=== PATIENT | male | born 1955 | race Caucasian/White ===

== ENCOUNTER 2022-08-20 08:59 | Outpatient (RCR) | payer MEDICARE, SELFPAY | END 2022-08-20 23:59 | disposition home or self-care (01) | LOC: CR 08:59 | PROVIDERS: PCP Family Medicine; Visit Provider Internal Medicine Cardiovascular Disease | DX: Z95.1 Presence of aortocoronary bypass graft (principal) | CPT/HCPCS: S9472 ==

== ENCOUNTER 2022-09-17 09:06 | Outpatient (RCR) | payer MEDICARE, SELFPAY | END 2022-09-19 23:59 | disposition home or self-care (01) | LOC: CR 09:06 | PROVIDERS: PCP Family Medicine; Visit Provider Internal Medicine Cardiovascular Disease | DX: Z95.1 Presence of aortocoronary bypass graft (principal); Z51.89 Encounter for other specified aftercare | CPT/HCPCS: S9472 ==

== ENCOUNTER 2022-10-20 08:58 | Outpatient (RCR) | payer MEDICARE, SELFPAY | END 2022-10-20 23:59 | disposition home or self-care (01) | LOC: CR 08:58 | PROVIDERS: PCP Family Medicine; Visit Provider Internal Medicine Cardiovascular Disease | DX: Z95.1 Presence of aortocoronary bypass graft (principal); Z51.89 Encounter for other specified aftercare | CPT/HCPCS: S9472 ==

== ENCOUNTER 2022-11-08 09:00 | Outpatient (RCR) | payer MEDICARE, SELFPAY | END 2022-11-19 23:59 | disposition home or self-care (01) | LOC: CR 09:00 | PROVIDERS: PCP Family Medicine; Visit Provider Internal Medicine Cardiovascular Disease | DX: Z95.1 Presence of aortocoronary bypass graft (principal); Z51.89 Encounter for other specified aftercare | CPT/HCPCS: S9472 ==